=== PATIENT | female | born 1960 | race Caucasian/White ===

== ENCOUNTER 2017-06-06 20:17 | Emergency (ER) | payer MEDICAID ==
--- NOTE | 2017-06-06 20:19 | EDPHY ---
H & P HPI/ROS: HPI CHIEF COMPLAINT: Right Ear Pain HISTORY OF PRESENT ILLNESS: This patient very pleasant 57-year-old female significant past medical history for asthma and seizures, presents emergency room with right ear pain since Friday or for 3 days. No drainage. No trauma. Denies headache. Denies fever. Does state that she has some sinus congestion mainly maxillary sinuses, no significant sore throat. Denies productive cough or wheezing. Denies vomiting or diarrhea. Main complaint throbbing right ear pain. Past Medical History: Asthma, seizures Past Surgical History: No recent surgery Social History: Denies daily use drugs alcohol tobacco products. Family History: Noncontributory ROS REVIEW OF SYSTEMS: A comprehensive 10 point review of systems is otherwise negative aside from elements mentioned in the history of present illness. Exam Constitutional appears well nontoxic, triage nursing summary reviewed, vital signs reviewed, awake/alert. Eyes normal conjunctivae and sclera, EOMI, PERRLA. HENT TM on the right side is mildly erythematous with no significant bulge, TM left normal, posterior pharynx normal, no significant exudate redness or swelling, no significant submandibular lymphadenopathy moist mucus membranes, no epistaxis, neck supple/ no meningismus, no raccoon eyes. Respiratory clear to auscultation bilaterally, normal breath sounds, no respiratory distress, no wheezing. Cardiovascular rate normal, regular rhythm, no murmur, no edema, distal pulses normal. Gastrointestinal soft, non-tender, no rebound, no guarding, normal bowel sounds, no distension, no pulsatile mass. Genitourinary no CVA tenderness. Musculoskeletal no midline vertebral tenderness, full range of motion, no calf swelling, no tenderness of extremities, no meningismus, good pulses, neurovascularly intact. Skin pink, warm, & dry, no rash, skin atraumatic. Neurologic awake, alert and oriented x 3, AAOx3, moves all 4 extremities equally, motor intact, sensory intact, CN II-XII intact, normal cerebellar, normal vision, normal speech. Psychiatric normal mood/affect. Heme/Lymph/Immune no lymphadenopathy. Differential Diagnosis: Includes but is not limited to in a particular order otitis media, acute sinusitis, upper respiratory tract infection, viral syndrome. Medical Decision Making: Plan for this patient start amoxicillin here in emergency room as the right TM does appear infected. This is most likely causing her right ear pain. She otherwise appears well nontoxic in no acute distress. Vital signs reviewed. Re-evaluation: Will start amoxicillin here. Recommend Sudafed D congestion. Tylenol and Motrin for pain control. Source: Patient - Medical/Surgical History Hx Asthma: Yes Hx Chronic Respiratory Disease: No Hx Diabetes: No Hx Cardiac Disease: No Hx Renal Disease: No Hx Cirrhosis: No Hx Alcoholism: No Hx HIV/AIDS: No Hx Splenectomy or Spleen Trauma: No Other PMH: HYPOTHYROID/REFLUX - Social History Smoking Status: Never smoked Constitutional: Initial Vital Signs Temperature (C) 36.5 C 06/06/17 20:25 Heart Rate 80 06/06/17 20:25 Respiratory Rate 14 06/06/17 20:25 Blood Pressure 155/88 H 06/06/17 20:25 O2 Sat (%) 97 06/06/17 20:25 O2 Delivery Mode Room Air Allergies/Adverse Reactions: Sulfa (Sulfonamide Antibiotics) Allergy (Severe, Verified 06/06/17 20:23) RESP ARREST Home Medications: Medication Instructions Recorded Albuterol Sulfate 3 ml IH 06/20/11 LEVOTHYROXINE SODIUM [Levoxyl] 88 mcg PO 06/20/11 Topiramate [Topamax] 100 mg PO BID 06/20/11 lamoTRIgine [Lamictal Xr] 100 mg PO 06/20/11 levETIRAcetam [Keppra] 250 mg PO BID 06/20/11 Beclomethasone Qvar 40 [Qvar 40 2 puffs IH BID 07/02/12 (RX)] Loratadine [Claritin 10 mg] 10 mg PO DAILY 07/02/12 Aspirin 81mg (OTC) 02/20/15 Prilosec 02/20/15 Amoxicillin Trihydrate 500 mg PO TID 7 Days cap 06/06/17 [Amoxicillin] Departure - Departure Disposition: Home, Routine, Self-Care Clinical Impression: Otitis media Qualifiers: Otitis media type: unspecified Chronicity: acute Qualified Code(s): H66.90 - Otitis media, unspecified, unspecified ear Condition: Good Instructions: Ear Infection (ED) Additional Instructions: 1. Drink lots of fluids stay well-hydrated. 2. Amoxicillin as prescribed. 3. Return emergency room if there is worsening symptoms questions or concerns. 4. Take Tylenol for pain control. Do not exceed 3000 mg per day. 5. Follow up with ENT if this does not get better 6. I would get Sudafed over the counter. Referrals: JOSE RAFAEL SANABRIA,. [Primary Care Provider] - As per Instructions Shade Ann MD [Medical Doctor] - As per Instructions Prescriptions: Amoxicillin Trihydrate [Amoxicillin] 500 mg PO TID 7 Days cap
[2017-06-06 20:28] VITALS: BP 155/88; PULSE 80; RESP 14; TEMP 97.7; O2SAT 97
== END 2017-06-06 20:47 | disposition home or self-care (01) ==
LOC: CED 20:17
DX: H66.91 Otitis media, unspecified, right ear (principal); J45.909 Unspecified asthma, uncomplicated; Z79.82 Long term (current) use of aspirin

== ENCOUNTER 2017-07-03 13:51 | Emergency (ER) | payer MEDICAID ==
[2017-07-03 14:04] VITALS: BP 110/77; PULSE 75; RESP 16; TEMP 98.4; O2SAT 95
--- NOTE | 2017-07-03 14:14 | EDPHY ---
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 She states that she injured her knee 8 weeks ago with a severe abrasion. It healed over the next few weeks and she remained ambulatory. Then today while she was standing and suddenly collapsed for no apparent reason and she landed in a kneeling position. She now has mild swelling to her knee at the distal end of the knee cap and a small abrasion. She was able to ambulate and drive here to the emergency department. She has not taken any medications. This happened about an hour ago. REVIEW OF SYSTEMS: Constitutional: denies: chills, fever, recent illness, recent injury EENTM: denies: blurred vision, double vision, nose congestion Respiratory: denies: cough, shortness of breath Cardiac: denies: chest pain, irregular heart rate, lightheadedness, palpitations Gastrointestinal/Abdominal: denies: abdominal pain, diarrhea, nausea, vomiting, blood streaked stools Genitourinary: denies: dysuria, frequency, hematuria, pain Musculoskeletal: See HPI Skin: denies: lesions, rash, jaundice, bruising Neurological: denies: headache, numbness, paresthesia, tingling, dizziness, weakness Hematologic/Lymphatic: denies: blood clots, easy bleeding, easy bruising Immunologic/allergic: denies: HIV/AIDS, transplant EXAM: GENERAL: Well-appearing, well-nourished and in no acute distress. HEAD: Atraumatic, normocephalic. EYES: Pupils equal round and reactive to light, extraocular movements intact, sclera anicteric, conjunctiva are normal. ENT: TMs normal, nares patent, oropharynx clear without exudates. Moist mucous membranes. NECK: Normal range of motion, supple without lymphadenopathy or JVD. LUNGS: Breath sounds clear to auscultation bilaterally and equal. No wheezes rales or rhonchi. HEART: Regular rate and rhythm without murmurs, rubs or gallops. ABDOMEN: Soft, nontender, normoactive bowel sounds. No guarding, no rebound. No masses appreciated. BACK: No CVA tenderness, no spinal tenderness, step-offs or deformities EXTREMITIES: Normal range of motion, no pitting or edema. No clubbing or cyanosis. No deformity of patella, normal extension and flexion of knee. No laxity on ligamentous stressing. No hip pain. NEUROLOGICAL: Cranial nerves II through XII grossly intact. Normal speech, normal gait. 5/5 strength, normal movement in all extremities, normal sensation PSYCH: Normal mood, normal affect. SKIN: Small hematoma and abrasion to left knee cap, Source: Patient Exam Limitations: No limitations - Medical/Surgical History Hx Asthma: Yes Hx Chronic Respiratory Disease: No Hx Diabetes: No Hx Cardiac Disease: No Hx Renal Disease: No Hx Cirrhosis: No Hx Alcoholism: No Hx HIV/AIDS: No Hx Splenectomy or Spleen Trauma: No Other PMH: MEd hx-asthma,HYPOTHYROID/REFLUX,seizure disorder. [id number] - Family History Significant Family History: No pertinent family hx - Social History Smoking Status: Never smoked Alcohol Use: Sober Drug Use: None Constitutional: Initial Vital Signs Temperature (C) 36.9 C 07/03/17 13:59 Heart Rate 75 07/03/17 13:59 Respiratory Rate 16 07/03/17 13:59 Blood Pressure 110/77 07/03/17 13:59 O2 Sat (%) 95 07/03/17 13:59 O2 Delivery Mode Room Air Allergies/Adverse Reactions: Sulfa (Sulfonamide Antibiotics) Allergy (Severe, Verified 07/03/17 13:57) RESP ARREST Home Medications: Medication Instructions Recorded Albuterol Sulfate 3 ml IH 06/20/11 LEVOTHYROXINE SODIUM [Levoxyl] 88 mcg PO 06/20/11 Topiramate [Topamax] 100 mg PO BID 06/20/11 lamoTRIgine [Lamictal Xr] 100 mg PO 06/20/11 levETIRAcetam [Keppra] 250 mg PO BID 06/20/11 Beclomethasone Qvar 40 [Qvar 40 2 puffs IH BID 07/02/12 (RX)] Loratadine [Claritin 10 mg] 10 mg PO DAILY 07/02/12 Aspirin 81mg (OTC) 02/20/15 Prilosec 02/20/15 Medical Decision Making - Diagnostics Imaging: Discussed imaging studies w/ operations examiner Radiologist ED Course/Re-evaluation: 2:30 p.m. we discussed the x-ray results which are reassuring. The patient has soft tissue swelling and minor abrasion this was dressed and braced with an Omero wrap. We discussed [id number] exercises, ice and rest. I advised her not to move furniture this evening with ache and as she had planned. She is able to extend her knee against pressure. I do not think that she has a ruptured patellar tendon. The patient understands and agrees with this plan. I will refer her to Orthopedics again she is not healing well. Differential Diagnosis: Partial list of the Differential diagnosis considered include but were not limited to; contusion, abrasion, patella tendon injury, patella fracture and although unlikely based on the history and physical exam, I also considered tibial plateau fracture, meniscus injury, ligamentous injury, infection. I discussed these differential diagnoses and the plan with the patient as well as the usual and expected course. The patient understands that the diagnosis is provisional and that in medicine we are not always correct and that further workup is often warranted. Usual and customary warnings were given. All of the patient's questions were answered. The patient was instructed to return to the emergency department should the symptoms at all worsen or return, otherwise to followup with the physician as we discussed. - Data Points Medications Given: Discontinued Medications Acetaminophen (Tylenol) 1,000 mg PO EDNOW ONE Stop: 07/03/17 14:18 Last Admin: 07/03/17 14:35 Dose: 1,000 mg Departure - Departure Disposition: Home, Routine, Self-Care Clinical Impression: Abrasion Contusion Qualifiers: Encounter type: initial encounter Contusion area: knee Laterality: left Qualified Code(s): S80.02XA - Contusion of left knee, initial encounter Condition: Fair Instructions: Knee Pain (ED) Referrals: JOSE RAFAEL SANABRIA,. [Primary Care Provider] - As per Instructions Malik Calix MD [Medical Doctor] - As per Instructions
[2017-07-03] MEDS ORDERED: ACETAMINOPHEN 500 MG TAB PO ONE (14:17)
== END 2017-07-03 14:50 | disposition home or self-care (01) ==
LOC: CED 13:51
DX: S80.02XA Contusion of left knee, initial encounter (principal); J45.909 Unspecified asthma, uncomplicated; Z79.82 Long term (current) use of aspirin; X58.XXXA Exposure to other specified factors, initial encounter
CPT/HCPCS: 73564-PO